=== PATIENT | female | born 1950 | race African-American/Black ===

== ENCOUNTER 2021-11-07 23:19 | Emergency (ER) | payer OTHER ==
[~2021-11-07] VITALS: Ht 175.3 cm; Wt 88.9 kg
--- NOTE | ~2021-11-07 | EMS ---
[address] [address] EMS Patient Care Report Name: ARIEL TOBIAS Room #: DEP ARMEN Moreland#: [id number] Admission: 11/07/21 Attend Phys: Discharge: 11/08/21 Date of : 52 Report #: [id number] THIS REPORT FOR: //name// Report Transmitted: 11/10/2021 11:06 EMS Care Summary [place], [place]/[facility] Incident [id number] @ 11/07/2021 22:48 Incident Location [facility] [address] Patient ARIEL TOBIAS Female, 70 Years 1950 Patient Address [facility] [address] [place] [address] Patient History End Stage Renal Disease (ESRD),Anemia,Dialysis, Patient Allergies Penicillin allergy,Cephalexin,Doxycycline,Sulfa,Keflex,Ibuprofen, Patient Medications Hydroxyzine, Oxycodone, Citalopram, Aspirin, Cymbalta, Insulin, Metoprolol, Heparin, Lidocaine, Trazodone, Furosemide, Alprazolam, Prednisone, Benadryl, Chief Complaint FOREHEAD LAC Disposition Transported No Lights/[place] Dispatch Reason Falls Transported To [facility] Narrative UPON ARRIVAL PT SITTING UPRIGHT ON GROUND CONSCIOUS AND ALERT. PT HAD ROLLED OUT OF BED AND HIT FOREHEAD ON THE GROUND. BED IS ON THE FLOOR, FALL ABOUT [address] [address] EMS Patient Care Report Name: ARIEL TOBIAS Room #: DEP [facility].#: [id number] Admission: 11/07/21 Attend Phys: Discharge: 11/08/21 Date of : 52 Report #: [id number] FOOT. P HAD NO LOC AND ONLY COMPLAINS OF PAIN TO THE FOREHEAD. HEAD HAS BEEN WRAPPED ALREADY ON OUR ARRIVAL. PT NORMALLY ON 4 LPM O2 AND SWITCHED TO PORTABLE O2 FOR TRANSPORT. PT ASSISTED TO FEET TO PIVOT TO COT. PT TRANSPORTED. Initial Vitals @23:10P: 130,R: 20,BP: 106/61,GCS: 15,SpO2: 98,Revised Trauma: 12, @23:05P: 137,R: 20,BP: 101/66,Pain: 5/10,GCS: 15,SpO2: 96,Revised Trauma: 12, Assessments @23:00MENTAL:Person Oriented,Place Oriented,Time Oriented,Event Oriented,SKIN:HEENT:Head/Face: No Abnormalities,LUNG SOUNDS:General: No Abnormalities,ABDOMEN:General: No Abnormalities,PELVIS//GI:EXTREMITIES:Left Arm: No Abnormalities,Right Arm: No Abnormalities,Left Leg: No Abnormalities,Right Leg: No Abnormalities,PULSE:Radial: 2+ Normal,NEURO:No Abnormalities, Impression Injury of Head Procedures @23:00 ALS Assessment Response: UnchangedSucceeded @23:02 C-Spine Clearance Response: Unchanged Timeline 22:45,Call Received 22:45,Dispatch Notified 22:48,Dispatched 22:49,En Route 22:57,On Scene 22:59,At Patient 23:00,ALS Assessment,Response: UnchangedSucceeded, 23:02,C-Spine Clearance,Response: Unchanged 23:05,BP: 101/66 M,PULSE: 137,RR: 20 R,SPO2: 96 Ox,ETCO2: ,BG: ,PAIN: 5,GCS: 15, 23:10,BP: 106/61 M,PULSE: 130,RR: 20 R,SPO2: 98 Ox,ETCO2: ,BG: ,PAIN: ,GCS: 15, 23:12,Depart Scene 23:15,At Destination 23:34,Call Closed Disclaimer v1.1 Copyright 2021 [employer] This EMS Care Summary contains data elements from the applicable legal record (which may be displayed differently). It is designed to provide pertinent information for the following purposes: continuity of care, clinical quality, and state data reporting. The complete legal record is available to ED staff [address] [address] EMS Patient Care Report Name: ARIEL TOBIAS Room #: DEP Aniceto#: [id number] Admission: 11/07/21 Attend Phys: Discharge: 11/08/21 Date of : 52 Report #: [id number] and administrators of the receiving hospital in ES's Patient Tracker. All data is provided "as is."
--- NOTE | ~2021-11-07 | EMS ---
[facility] [address] [place] [address] EMS Patient Care Report Name: ARIEL TOIBAS Room #: REG ARMEN Moreland#: [id number] Admission: 11/07/21 Attend Phys: Discharge: Date of : 52 Report #: [id number] THIS REPORT FOR: //name// Report Transmitted: 11/07/2021 22:38 EMS Care Summary [place], [place]/[facility] Incident [id number] @ 11/07/2021 22:48 Incident Location [address] Patient ARIEL TOBIAS Female, 70 Years 1950 Patient Address [address] [place] [address] Patient History End Stage Renal Disease (ESRD),Anemia,Dialysis, Patient Allergies Penicillin allergy,Cephalexin,Doxycycline,Sulfa,Keflex,Ibuprofen, Patient Medications Hydroxyzine, Oxycodone, Citalopram, Aspirin, Cymbalta, Insulin, Metoprolol, Heparin, Lidocaine, Trazodone, Furosemide, Alprazolam, Prednisone, Benadryl, Chief Complaint FOREHEAD LAC Disposition Transported No Lights/[place] Dispatch Reason Falls Transported To [facility] Narrative UPON ARRIVAL PT SITTING UPRIGHT ON GROUND CONSCIOUS AND ALERT. PT HAD ROLLED OUT OF BED AND HIT FOREHEAD ON THE GROUND. BED IS ON THE FLOOR, FALL ABOUT 1 [facility] [address] [place] [address] EMS Patient Care Report Name: ARIEL TBOIAS Room #: REG ER [facility].#: [id number] Admission: 11/07/21 Attend Phys: Discharge: Date of : 52 Report #: [id number] FOOT. P HAD NO LOC AND ONLY COMPLAINS OF PAIN TO THE FOREHEAD. HEAD HAS BEEN WRAPPED ALREADY ON OUR ARRIVAL. PT NORMALLY ON 4 LPM O2 AND SWITCHED TO PORTABLE O2 FOR TRANSPORT. PT ASSISTED TO FEET TO PIVOT TO COT. PT TRANSPORTED. Initial Vitals @23:10P: 130,R: 20,BP: 106/61,GCS: 15,SpO2: 98,Revised Trauma: 12, @23:05P: 137,R: 20,BP: 101/66,Pain: 5/10,GCS: 15,SpO2: 96,Revised Trauma: 12, Assessments @23:00MENTAL:Person Oriented,Place Oriented,Time Oriented,Event Oriented,SKIN:HEENT:Head/Face: No Abnormalities,LUNG SOUNDS:General: No Abnormalities,ABDOMEN:General: No Abnormalities,PELVIS//GI:EXTREMITIES:Left Arm: No Abnormalities,Right Arm: No Abnormalities,Left Leg: No Abnormalities,Right Leg: No Abnormalities,PULSE:Radial: 2+ Normal,NEURO:No Abnormalities, Impression Injury of Head Procedures @23:00 ALS Assessment Response: UnchangedSucceeded @23:02 C-Spine Clearance Response: Unchanged Timeline 22:45,Call Received 22:45,Dispatch Notified 22:48,Dispatched 22:49,En Route 22:57,On Scene 22:59,At Patient 23:00,ALS Assessment,Response: UnchangedSucceeded, 23:02,C-Spine Clearance,Response: Unchanged 23:05,BP: 101/66 M,PULSE: 137,RR: 20 R,SPO2: 96 Ox,ETCO2: ,BG: ,PAIN: 5,GCS: 15, 23:10,BP: 106/61 M,PULSE: 130,RR: 20 R,SPO2: 98 Ox,ETCO2: ,BG: ,PAIN: ,GCS: 15, 23:12,Depart Scene 23:15,At Destination 23:34,Call Closed Disclaimer v1.1 Copyright 2020 [employer] This EMS Care Summary contains data elements from the applicable legal record (which may be displayed differently). It is designed to provide pertinent information for the following purposes: continuity of care, clinical quality, and state data reporting. The complete legal record is available [place] [address] EMS Patient Care Report Name: ARIEL TOBIAS Room #: CARLIN Moreland#: [id number] Admission: 11/07/21 Attend Phys: Discharge: Date of : 52 Report #: [id number] and administrators of the receiving hospital in [employer]'s Patient Tracker. All data is provided "as is."
[2021-11-08 00:57] VITALS: BP 110/62
[2021-11-08] MEDS ORDERED: ALPRAZOLAM 0.0.25 M1 PO (04:16)
[2021-11-08] MEDS ORDERED: BACITRACIN1 EACH TOP (04:17)
[2021-11-08] MEDS ORDERED: ASA81BEC PO (04:17)
[2021-11-08] MEDS ORDERED: VITAMIN C500 M2 PO (04:17)
[2021-11-08] MEDS ORDERED: CELEXA 20 MG TA20 MG PO (04:18)
[2021-11-08] MEDS ORDERED: FAMOTIDINE 20 M20 MG PO (04:18)
[2021-11-08] MEDS ORDERED: CYMBALTA60 MG PO (04:18)
[2021-11-08] MEDS ORDERED: BENADRYL25 MG PO (04:18)
[2021-11-08] MEDS ORDERED: FUROSEMIDE 80 M80 M1 PO (04:19)
[2021-11-08] MEDS ORDERED: GLUCAGEN1 M2 IM (04:20)
[2021-11-08] MEDS ORDERED: MUCINEX600 MG PO (04:20)
[2021-11-08] MEDS ORDERED: HEPARIN SO5000 UNIT6 SUBQ (04:21)
[2021-11-08] MEDS ORDERED: HYDROXYZINE HCL25 M2 PO (04:22)
[2021-11-08] MEDS ORDERED: NOVOLOG100 UNIT/2 SUBQ (04:23)
[2021-11-08] MEDS ORDERED: IPRAT-ALBUT 0.5-3 ML INH ×2 (04:24)
[2021-11-08] MEDS ORDERED: MELATONIN3 M1 PO (04:25)
[2021-11-08] MEDS ORDERED: LIDOCAINE PAIN1 EACH TOP (04:25)
[2021-11-08] MEDS ORDERED: MIRALAX119 GM PO (04:26)
[2021-11-08] MEDS ORDERED: TOPROL XL50 MG PO (04:26)
[2021-11-08] MEDS ORDERED: ARTIFICIAL TEA1 EACH OPHTHALMIC (04:26)
[2021-11-08] MEDS ORDERED: NYSTATIN15 G3 TOP (04:27)
[2021-11-08] MEDS ORDERED: ZINC-22050 MG PO (04:27)
[2021-11-08] MEDS ORDERED: OXYCODONE HCL5 MG PO ×2 (04:28)
[2021-11-08] MEDS ORDERED: ONDANSETRON HCL4 M2 PO (04:28)
[2021-11-08] MEDS ORDERED: PREDNISONE 10 M10 MG PO (04:29)
[2021-11-08] MEDS ORDERED: TRAZODONE HCL50 MG PO (04:30)
[2021-11-08] MEDS ORDERED: RENVELA800 MG PO (04:30)
[2021-11-08] MEDS ORDERED: RENAL-VITE TAB0.8 MG PO (04:30)
[2021-11-08] MEDS ORDERED: VOLTAREN ARTHRI20 GM TOP (04:31)
[2021-11-08] MEDS ORDERED: TYLENOL EXTRA500 MG PO (04:31)
== END 2021-11-08 01:36 | disposition home or self-care (01) ==
LOC: ER 23:19
DX: S01.81XA Laceration without foreign body of other part of head, initial encounter (principal); Z88.6 Allergy status to analgesic agent; Z88.1 Allergy status to other antibiotic agents; Z88.0 Allergy status to penicillin; Z88.2 Allergy status to sulfonamides; Z88.8 Allergy status to other drugs, medicaments and biological substances; W06.XXXA Fall from bed, initial encounter; Y93.89 Activity, other specified; Y92.89 Other specified places as the place of occurrence of the external cause; Y99.8 Other external cause status

== ENCOUNTER 2021-12-03 18:51 | Inpatient (IN) | payer OTHER ==
[~2021-12-03] VITALS: Ht 152.4 cm; Wt 81.0 kg
--- NOTE | ~2021-12-03 | EMS ---
[address] [address] EMS Patient Care Report Name: ARIEL TOBIAS Room #: REG ARMEN Moreland#: [id number] Admission: 12/03/21 Attend Phys: Discharge: Date of : 52 Report #: [id number] THIS REPORT FOR: //name// Report Transmitted: 12/03/2021 18:42 EMS Care Summary [place], [place]/[facility] Incident [id number] @ 12/03/2021 18:23 Incident Location [address] Patient ARIEL TOBIAS Female, 71 Years 1950 Patient Address [address] [place] [address] Patient History Congestive Heart Failure (CHF),End Stage Renal Disease (ESRD),Anemia,Dialysis, Patient Allergies Penicillin allergy,Cephalexin,Doxycycline,Sulfa,Keflex,Ibuprofen, Patient Medications Alprazolam, Cymbalta, Insulin, Metoprolol, Hydroxyzine, Prednisone, Heparin, Lidocaine, Benadryl, Furosemide, Trazodone, Oxycodone, Aspirin, Citalopram, Chief Complaint AMS Disposition Transported Lights/[place] Dispatch Reason Breathing Problem Transported To [facility] Narrative RESPONDED TO BREATHING PROBLEMS AT GROUP HOME. UPON ARRIVAL PT FOUND SITTING UPRIGHT LAYING IN BED. PT IS AWAKE BUT NOT TRACKING. PT DOES NOT ANSWER [address] [address] EMS Patient Care Report Name: ARIEL TOBIAS Room #: REG [facility].#: [id number] Admission: 12/03/21 Attend Phys: Discharge: Date of : 52 Report #: [id number] QUESTIONS OR FOLLOW SIMPLE COMMANDS BUT YELLS OUT TO PAIN. [place] STAFF REPORT PT USUALLY GCS OF 15. PT BASELINE IS ON OXYGEN AND BUMPED UP FROM 2LPM TO 4LPM BY STAFF SCOREKEEPER OF EMS. PT VITALS OBTAINED. PT NOTED TO BE TACHYCARDIC AND HYPOTENSIVE. 12 LEAD APPEARS SINUS TACH WITH NO ELEVATION/DERESSION. IV FLUIDS WERE STARTED AND PT WAS TEAM LIFTED TO COT WITH SEATBELTS APPLIED. PT TRANSPORTED TO [facility]. PT WAS TEAM LIFTED TO BED AND HANDRAILS UP. REPORT GIVEN TO NURSE. Initial Vitals @18:44P: 155,R: 36, @18:45P: 187,R: 31,CO: 2,SpO2: 94, @18:36P: 152,R: 35,WI Suspected: false @18:33P: 147,R: 33, @18:35P: 160,R: 34,CO: 0,SpO2: 97, @18:36P: 154,R: 35, @18:42P: 149,R: 32, @18:48P: 155,R: 35, @18:47P: 158,R: 36,BP: 88/60,SpO2: 96, @18:47P: 155,R: 32,SpO2: 96, @18:32P: 149,CO: 5,SpO2: 98, @18:33P: 149,R: 26,BP: 85/57,GCS: 11,Glucose: 206,SpO2: 95,Revised Trauma: 10, Assessments @18:32MENTAL:Confused,SKIN:HEENT:Neck/Airway: No Abnormalities,LUNG SOUNDS:ABDOMEN:PELVIS//GI:Incontinence,EXTREMITIES:Left Arm: Weakness,Left Leg: Weakness,Right Leg: Weakness,Right Arm: Weakness,PULSE:NEURO:Other,@18:42MENTAL:Confused,SKIN:HEENT:LUNG SOUNDS:ABDOMEN:PELVIS//GI:EXTREMITIES:Left Arm: Weakness,Left Leg: Weakness,Right Leg: Weakness,Right Arm: Weakness,PULSE:NEURO:Other, Impression Altered Mental Status Procedures @18:32 ALS Assessment Response: UnchangedSucceeded @18:36 IV Therapy - Saline Lock 5cc (18 ga) Site: Antecubital-Left Response: UnchangedSucceeded @18:33 3-Lead ECG Response: UnchangedSucceeded @18:34 Oxygen FlowRate: 4 Device: Nasal Cannula (NC) Response: UnchangedSucceeded @18:36 12-Lead ECG Response: UnchangedSucceeded @18:40 IV Bolus - Normal Saline (.9% NaCl) 30cc (18 ga) Site: Antecubital-Left Response: UnchangedSucceeded Timeline [facility] [address] [place] [address] EMS Patient Care Report Name: ARIEL TOBIAS Room #: REG ARMEN Moreland#: [id number] Admission: 12/03/21 Attend Phys: Discharge: Date of : 52 Report #: [id number] 18:21,Call Received 18:21,Dispatch Notified 18:23,Dispatched 18:24,En Route 18:30,On Scene 18:32,At Patient 18:32,ALS Assessment,Response: UnchangedSucceeded, 18:32,BP: / M,PULSE: 149,RR: R,SPO2: 98 Ox,ETCO2: ,BG: ,PAIN: ,GCS: , 18:33,3-Lead ECG,Response: UnchangedSucceeded, 18:33,BP: 85/57 M,PULSE: 149,RR: 26 R,SPO2: 95 Ox,ETCO2: ,B,PAIN: ,GCS: 11, 18:33,BP: / M,PULSE: 147,RR: 33 R,SPO2: Ox,ETCO2: ,BG: ,PAIN: ,GCS: , 18:34,Oxygen FlowRate: 4 Device: Nasal Cannula (NC) Response: UnchangedSucceeded, 18:35,BP: / M,PULSE: 160,RR: 34 R,SPO2: 97 Ox,ETCO2: ,BG: ,PAIN: ,GCS: , 18:36,12-Lead ECG,Response: UnchangedSucceeded, 18:36,BP: / M,PULSE: 152,RR: 35 R,SPO2: Ox,ETCO2: ,BG: ,PAIN: ,GCS: , 18:36,IV Therapy - Saline Lock 5cc 18 ga Site: Antecubital-Left,Response: UnchangedSucceeded, 18:36,BP: / M,PULSE: 154,RR: 35 R,SPO2: Ox,ETCO2: ,BG: ,PAIN: ,GCS: , 18:40,IV Bolus - Normal Saline (.9% NaCl) 30cc 18 ga Site: Antecubital-Left,Response: UnchangedSucceeded, 18:42,BP: / M,PULSE: 149,RR: 32 R,SPO2: Ox,ETCO2: ,BG: ,PAIN: ,GCS: , 18:43,Depart Scene 18:44,BP: / M,PULSE: 155,RR: 36 R,SPO2: Ox,ETCO2: ,BG: ,PAIN: ,GCS: , 18:44,At Destination 18:45,BP: / M,PULSE: 187,RR: 31 R,SPO2: 94 Ox,ETCO2: ,BG: ,PAIN: ,GCS: , 18:47,BP: / M,PULSE: 155,RR: 32 R,SPO2: 96 Ox,ETCO2: ,BG: ,PAIN: ,GCS: , 18:47,BP: 88/60 M,PULSE: 158,RR: 36 R,SPO2: 96 Ox,ETCO2: ,BG: ,PAIN: ,GCS: , 18:48,BP: / M,PULSE: 155,RR: 35 R,SPO2: Ox,ETCO2: ,BG: ,PAIN: ,GCS: , 19:04,Call Closed Disclaimer v1.1 Copyright 2021 [employer] This EMS Care Summary contains data elements from the applicable legal record (which may be displayed differently). It is designed to provide pertinent information for the following purposes: continuity of care, clinical quality, and state data reporting. The complete legal record is available to ED staff and administrators of the receiving hospital in [employer]'s Patient Tracker. All data is provided "as is."
[~2021-12-03 18:51] MED LIST: ALPRAZOLAM 0.0.25 M1 PO; ARTIFICIAL TEA1 EACH OPHTHALMIC; ASA81BEC PO; BACITRACIN1 EACH TOP; BENADRYL25 MG PO; CELEXA 20 MG TA20 MG PO; CYMBALTA60 MG PO; FAMOTIDINE 20 M20 MG PO; FUROSEMIDE 80 M80 M1 PO; GLUCAGEN1 M2 IM; HEPARIN SO5000 UNIT6 SUBQ; HYDROXYZINE HCL25 M2 PO; IPRAT-ALBUT 0.5-3 ML INH; LIDOCAINE PAIN1 EACH TOP; MELATONIN3 M1 PO; MIRALAX119 GM PO; MUCINEX600 MG PO; NOVOLOG100 UNIT/2 SUBQ; NYSTATIN15 G3 TOP; ONDANSETRON HCL4 M2 PO; OXYCODONE HCL5 MG PO; PREDNISONE 10 M10 MG PO; RENAL-VITE TAB0.8 MG PO; RENVELA800 MG PO; TOPROL XL50 MG PO; TRAZODONE HCL50 MG PO; TYLENOL EXTRA500 MG PO; VITAMIN C500 M2 PO; VOLTAREN ARTHRI20 GM TOP; ZINC-22050 MG PO
[2021-12-03 18:56] VITALS: BP 80/48
[2021-12-03 19:39] LABS: HEMATOCRIT 25.4 % (37.0-47.0); HEMOGLOBIN 8.2 gm/dL (12.0-15.0); MCH 28.7 pg (26.0-34.0); MCHC 32.4 g/dL (28.0-37.0); MCV 88.6 fL (80.0-100.0); RBC 2.86 mil/uL (4.20-5.00); RDW 17.8 % (10.5-14.5); WBC 23.1 thou/uL (4.0-11.0)
[2021-12-03 19:55] LABS: ANION GAP 13 mmol/L (7-16); BUN 46 mg/dL (7-18); CALCIUM 7.4 mg/dL (8.5-10.1); CHLORIDE 98 mmol/L (98-107); CO2 20 mmol/L (21-32); CREATININE 4.7 mg/dL (0.6-1.0); GLUCOSE 121 mg/dL (74-106); SODIUM 131 mmol/L (136-145)
[2021-12-03 20:05] LABS: ALBUMIN 1.5 g/dL (3.4-5.0); MAGNESIUM 1.6 mg/dL (1.8-2.4); PHOSPHORUS 4.5 mg/dL (2.6-4.7); SALICYLATE < 2.8 mg/dL (2.8-20.0); SGOT 57 U/L (15-37); SGPT 17 U/L (14-59); TOTAL BILIRUBIN 0.5 mg/dL (0.2-1.0); TOTAL PROTEIN 5.8 g/dL (6.4-8.2)
[2021-12-03 20:09] LABS: POTASSIUM 5.1 mmol/L (3.5-5.1)
[2021-12-03 21:49] LABS: URINE CLARITY CLOUDY; URINE COLOR YELLOW
[2021-12-03 21:50] LABS: URINE GLUCOSE-RANDOM* NEGATIVE (Negative); URINE PROTEIN (DIPSTICK) 3+ (Negative); URINE SPECIFIC GRAVITY 1.015 (1.005-1.035)
[2021-12-03 21:51] LABS: URINE BILIRUBIN NEGATIVE (Negative); URINE BLOOD 3+ (Negative); URINE KETONES 2+ (Negative); URINE LEUKOCYTES-REFLEX 3+ (Negative); URINE NITRITE-REFLEX NEGATIVE (Negative); URINE UROBILINOGEN 0.2 E.U./dl (0.2-1.0)
[2021-12-03 21:53] LABS: AMP/METHAMP Negative (Negative); BARBITURATES Negative (Negative); BENZODIAZEPINES Negative (Negative); COCAINE Negative (Negative); METHADONE Negative (Negative); OPIATES POSITIVE (Negative); PCP Negative (Negative)
[2021-12-03 21:56] LABS: SQUAMOUS 4-10 Moderate /LPF (0-3)
[2021-12-03 21:57] LABS: BACTERIA-REFLEX >30 Many /HPF (None Seen); CASTS None Seen /LPF (None Seen); CRYSTALS None Seen /LPF (None Seen); MUCUS 0-3 Light strn/LPF (None Seen); URINE RBC >20 Many /HPF (NONE SEEN); URINE WBC-REFLEX >25 Many /HPF (0-5); WBC CLUMPS Packed (None Seen)
[2021-12-04 05:48] LABS: HEMATOCRIT 23.3 % (37.0-47.0); HEMOGLOBIN 7.4 gm/dL (12.0-15.0); MCH 28.1 pg (26.0-34.0); MCHC 31.6 g/dL (28.0-37.0); MCV 88.9 fL (80.0-100.0); RBC 2.62 mil/uL (4.20-5.00); RDW 17.8 % (10.5-14.5); WBC 24.7 thou/uL (4.0-11.0)
[2021-12-04 06:29] LABS: POTASSIUM 4.3 mmol/L (3.5-5.1)
[2021-12-04 06:40] LABS: CREATININE 2.7 mg/dL (0.6-1.0)
--- NOTE | 2021-12-04 08:11 | EKG ---
[address] [address] ELECTROCARDIOGRAM REPORT Name: ARIEL TOBIAS Room #: 170-1 ADM IN M.R.#: [id number] Admission: 12/03/21 Attend Phys: Franco Cutler MD Discharge: Date of : 51 Report #: [id number] [facility] ED Test Date: 2021-12-03 Test Time: 18:59:57 Pat Name: ARIEL TOBIAS Department: Room: 170 Gender: F Aquatic Performer: ed : 1950 Requested By: Romario Jaimes Order Number: [id number] MD: Danny Russ Measurements Intervals [place] Rate: 152 P: 57 TN: 129 QRS: 49 QRSD: 71 T: 87 QT: 294 QTc: 468 Interpretive Statements Sinus tachycardia Baseline wander in lead(s) V1 No previous ECG available for comparison Electronically Signed On 12-04-2021 8:11:45 BREAD PACKER by Danny Russ [email or web address] <ELECTRONICALLY SIGNED> By: Danny Russ MD, [facility] 12/04/21 0811 1859 1859 Danny Russ MD, FACC /EPI
[2021-12-04 23:17] VITALS: BP 132/69
[2021-12-05 02:06] LABS: HEP B SURFACE Ab(ANTI-HBS Reactive (()); HEPATITIS B SURFACE AG Negative (Negative)
[2021-12-05 02:57] LABS: HEMATOCRIT 22.4 % (37.0-47.0); HEMOGLOBIN 7.2 gm/dL (12.0-15.0); MCH 28.2 pg (26.0-34.0); RBC 2.55 mil/uL (4.20-5.00); RDW 17.9 % (10.5-14.5); WBC 19.8 thou/uL (4.0-11.0)
[2021-12-05 04:31] LABS: CALCIUM 8.4 mg/dL (8.5-10.1)
[2021-12-05 04:41] VITALS: BP 101/50
[2021-12-05 05:02] LABS: CREATININE 3.7 mg/dL (0.6-1.0)
[2021-12-05 06:07] LABS: GLYCOHEMOGLOBIN (HGB A1C) 4.7 % (4.8-5.6)
[2021-12-05 08:31] VITALS: BP 114/53
--- NOTE | 2021-12-05 08:41 | HC ---
[facility] [place] [address] CONSULTATION Name: ARIEL TOBIAS Room #: 208-P ADM IN M.R.#: [id number] Admission: 12/03/21 Attend Phys: Franco Cutler MD Discharge: Date of : 52 Report #: [id number] THIS REPORT FOR: cc: Humble Gilbert MD, Christopher B. MD Barry, Joseph W. MD ~ DATE OF SERVICE: 12/04/2021 INFECTIOUS DISEASE CONSULTATION ATTENDING PHYSICIAN: Dr. Cutler. REASON FOR EVALUATION: Gram-positive cocci septicemia, also complicated urinary tract infection. HISTORY OF PRESENT ILLNESS: Chart reviewed. The patient examined. This is a 71-year-old woman with extensive medical history, has diabetes mellitus, has been complicated by end-stage renal disease on dialysis, vasculopathy, who is in a facility, who was noted to be more encephalopathic with progressive weakness, otherwise hemodynamically somewhat more labile with a marked tachycardia and hypotension. This prompted referral to the Emergency Room. Initial studies showed a white count elevated at 23.1, lactic acid of 2.9, and ProBNP of 12,061. Chest x-ray showed patchy bilateral interstitial infiltrates. Coronavirus testing was negative. Procalcitonin elevated at 6.86. Blood cultures collected on admission now 2/2 with gram-positive cocci in clusters, awaiting ID. Urinalysis, no voids, very little and greater than 25 white cells, greater than 30 bacteria. She is somewhat less encephalopathic now per nurse. She is more responsive. When asked, she complains of mid upper back pain. She is requiring supplemental oxygen at 4 liters per nasal cannula. She is empirically started on therapy with vancomycin and cefepime. ALLERGIES: PENICILLINS, SULFA, CEPHALOSPORINS, TETRACYCLINE, AND IBUPROFEN. CURRENT MEDICATIONS: Include vancomycin, cefepime, subcutaneous heparin, insulin, pantoprazole, p.r.n. ondansetron, acetaminophen. 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 She has known coronary artery disease with previous cardiac arrest, anxiety, depression, anemia, PTSD, reflux. SOCIAL HISTORY: She is disabled. FAMILY HISTORY: Noncontributory. REVIEW OF SYSTEMS: Otherwise, limited. [address] [address] CONSULTATION Name: AREIL TOBIAS Room #: 208-[facility].#: [id number] Admission: 12/03/21 Attend Phys: Franco Cutler MD Discharge: Date of : 52 Report #: [id number] PHYSICAL EXAMINATION: GENERAL: She is generally pleasant. She is clearly confused, moderate to marked distress, chronically ill-appearing and undernourished. VITAL SIGNS: Temperature 100.8 earlier, pulses in the 130s, respirations 17, blood pressure 100s to one teens. HEENT: Normocephalic. Extraocular muscles intact. Nasal cannula in place. NECK: Supple. LUNGS: Overall diminished breath sounds. There is scattered coarse breath sounds at the bases. HEART: Tachycardic, appears fairly regular. I do not appreciate a murmur. ABDOMEN: Soft, no apparent peritoneal signs. GENITOURINARY AND RECTAL: Deferred. LABORATORY DATA: Most recent electrolytes, sodium 133, potassium 4.3, chloride 96, bicarbonate is 24, anion gap of 13, BUN and creatinine 23 and 2.7, glucose of 144. CBC: White count of 24.7, H and H 7.4 and 23.3, platelets of 175. Blood cultures described above, gram-positive cocci in clusters. Coronavirus-19 testing ID now is negative. PCR is pending. Drug screen was positive for opioids. Urine culture in progress. Urinalysis showed greater than 25 white cells, greater than 30 bacteria. ASSESSMENT AND PLAN: Septic shock. The patient is in a facility. She does have severe underlying issues, appears to be Staphylococcus, presumably at risk given her dialysis situation. Also appears to have a complicated urinary tract infection as well, perhaps a pneumonitis, likely the latter is multifactorial. We will continue empiric therapy. I think cefepime and vancomycin are reasonable choice and should cover both gram-positive and gram-negative. We will await cultures and further ID. She remains quite tenuous at this point, although she is not overtly toxic. Continue to monitor expectantly, certainly at risk for clinical deterioration and nosocomial related complications. <ELECTRONICALLY SIGNED> By: Esteban Gleason MD 12/05/21 0841 1341 2210 Esteban Gleason MD /nt
--- NOTE | 2021-12-05 09:57 | EKG ---
[address] [address] ELECTROCARDIOGRAM REPORT Name: ARIEL TOBIAS Room #: 208-P ADM IN M.R.#: [id number] Admission: 12/03/21 Attend Phys: Franco Cutler MD Discharge: Date of : 52 Report #: [id number] [facility] ED Test Date: 2021-12-04 Test Time: 14:37:26 Pat Name: ARIEL TOBIAS Department: Room: 208 Gender: F Book Sewing Machine Operator: Celine ARGUETA : 1950 Requested By: Franco Cutler Order Number: [id number] MD: Obi Ferguson Measurements Intervals [place] Rate: 165 P: 0 ID: QRS: 48 QRSD: 81 T: -54 QT: 309 QTc: 512 Interpretive Statements Supraventricular tachycardia Low voltage, precordial leads Probable anteroseptal infarct, old Borderline T abnormalities, inferior leads Compared to ECG 12/03/2021 18:59:57 Low QRS voltage now present Myocardial infarct finding now present T-wave abnormality now present Sinus tachycardia no longer present Electronically Signed On 12-05-2021 9:57:27 TRADE PROMOTION ANALYST by Obi Ferguson [email or web address] <ELECTRONICALLY SIGNED> By: Obi Ferguson MD, FACC 12/05/21 0957 1437 1437 Obi Ferguson MD, [facility] /EPI
[2021-12-05 11:16] VITALS: BP 108/50
[2021-12-05 16:13] VITALS: BP 116/54
[2021-12-05 20:00] VITALS: BP 119/46
[2021-12-06] VITALS (12 sets, daily range): BP systolic 95–143; BP diastolic 50–114
[2021-12-06 02:30] LABS: HEMATOCRIT 21.6 % (37.0-47.0); MCHC 31.7 g/dL (28.0-37.0)
[2021-12-06 02:33] LABS: HEMOGLOBIN 6.9 gm/dL (12.0-15.0); MCH 27.9 pg (26.0-34.0); MCV 88.1 fL (80.0-100.0); RBC 2.45 mil/uL (4.20-5.00); RDW 18.2 % (10.5-14.5); WBC 18.3 thou/uL (4.0-11.0)
[2021-12-06 02:36] LABS: CALCIUM 8.8 mg/dL (8.5-10.1); POTASSIUM 3.4 mmol/L (3.5-5.1)
--- NOTE | 2021-12-06 12:46 | 2DMMODE ---
[facility] [place] [address] 2 D/M-MODE ECHOCARDIOGRAM Name: ARIEL TOBIAS Room #: 208-P ADM IN .R.#: [id number] Admission: 12/03/21 Attend Phys: Franco Cutler MD Discharge: Date of : 52 Report #: [id number] THIS REPORT FOR: cc: Humble Gilbert MD, Christopher B. MD Park, Jin S. MD ~ APPROVED REPORT Study performed: 12/06/2021 10:43:35 EXAM: Comprehensive 2D, Doppler, and color-flow Echocardiogram Patient Location: In-Patient Room #: 208 Status: on-call BSA: 1.78 HR: 100 bpm BP: 118/56 mmHg Rhythm: Atrial Fibrillation Other Information Study Quality: Adequate Technically limited study due to uncooperative patient, inability to position patient. 2D Dimensions IVSd: 11.57 (7-11mm) LVOT Diam: 19.23 (18-24mm) LVDd: 41.37 mm PWd: 9.21 (7-11mm) Ascending Ao: 21.07 (22-36mm) LVDs: 25.97 (25-40mm) Left Atrium: 32.33 (27-40mm) Aortic Root: 28.59 mm Volumes Left Atrial Volume (Systole) Single Plane 4CH: 29.65 mL Aortic Valve AoV Peak Ata.: 1.62 m/s AO Peak Gr.: 10.56 mmHg Pulmonary Valve PV Peak Ata.: 1.00 m/s PV Peak Gr.: 3.96 mmHg Tricuspid Valve [facility] [address] [email or web address] [address] 2 D/M-MODE ECHOCARDIOGRAM Name: ARIEL TOBIAS Room #: 208-P ADM IN .R.#: [id number] Admission: 12/03/21 Attend Phys: Franco Cutler MD Discharge: Date of : 52 Report #: [id number] TR Peak Ata.: 3.07 m/s RAP Estimate: 7.00 mmHg TR Peak Gr.: 37.67 mmHg RVSP: 44.00 mmHg Left Ventricle The left ventricle is normal size. There is normal LV segmental wall motion. There is normal left ventricular wall thickness. Left ventricular systolic function is normal. The left ventricular ejection fraction is within the normal range. LVEF is 60-65%. This study is not technically sufficient to allow evaluation of the LV diastolic function due to atrial fibrillation. Right Ventricle The right ventricle is normal size. The right ventricular systolic function is normal. Atria The left atrium size is normal. The right atrium size is normal. Aortic Valve Aortic valve is trileaflet. No aortic regurgitation is present. There is no aortic valvular stenosis. Mitral Valve The mitral valve is normal in structure. There is no mitral valve regurgitation noted. No evidence of mitral valve stenosis. Tricuspid Valve The tricuspid valve is normal in structure. Mild tricuspid regurgitation. Pulmonic Valve Pulmonic valve is not well visualized. Trace pulmonic regurgitation. Great Vessels The aortic root is normal in size. IVC is normal in size and collapses >50% with inspiration. Pericardium There is no pericardial effusion. <Conclusion> The left ventricle is normal size. There is normal left ventricular wall thickness. Left ventricular systolic function is normal. [facility] [address] [place] [address] 2 D/M-MODE ECHOCARDIOGRAM Name: ARIEL TOBIAS Room #: 208-P [facility] ..#: [id number] Admission: 12/03/21 Attend Phys: Franco Cutler MD Discharge: Date of : 52 Report #: [id number] The right ventricle is normal size. The left atrium size is normal. Aortic valve is trileaflet. There is no mitral valve regurgitation noted. Mild tricuspid regurgitation. <ELECTRONICALLY SIGNED> By: Devon Beverly MD 12/06/21 1246 1246 45 Devon Beverly MD /INF
[2021-12-07] VITALS: BP 110/53
[2021-12-07 04:00] VITALS: BP 109/50
[2021-12-07 07:47] LABS: RBC 2.45 mil/uL (4.20-5.00)
[2021-12-07 07:49] LABS: HEMATOCRIT 21.6 % (37.0-47.0); HEMOGLOBIN 6.9 gm/dL (12.0-15.0); MCH 28.1 pg (26.0-34.0); MCHC 31.8 g/dL (28.0-37.0); MCV 88.3 fL (80.0-100.0); RDW 18.5 % (10.5-14.5); WBC 17.8 thou/uL (4.0-11.0)
[2021-12-07 08:01] LABS: CALCIUM 9.6 mg/dL (8.5-10.1); POTASSIUM 3.4 mmol/L (3.5-5.1)
[2021-12-07 08:10] VITALS: BP 105/47
--- NOTE | 2021-12-07 11:18 | EKG ---
[address] [place] [address] ELECTROCARDIOGRAM REPORT Name: ARIEL TOBIAS Room #: 208-P ADM IN M.R.#: [id number] Admission: 12/03/21 Attend Phys: Franco Cutler MD Discharge: Date of : 52 Report #: [id number] [facility] Test Date: 2021-12-06 Test Time: 13:03:29 Pat Name: ARIEL TOBIAS Department: Room: 208 P Gender: F Ergonomics Technician: MICHAEL : 1950 Requested By: Devon Beverly Order Number: [id number] MD: Devon Beverly Measurements Intervals [place] Rate: 172 P: -24 ID: 136 QRS: 50 QRSD: 79 T: -74 QT: 303 QTc: 513 Interpretive Statements Supraventricular tachycardia Low voltage, extremity leads Borderline T abnormalities, diffuse leads Compared to ECG 12/06/2021 01:28:50 T-wave abnormality now present Early repolarization no longer present Electronically Signed On 12-07-2021 11:18:39 INSOLE DOUBLER by Devon Beverly [email or web address] <ELECTRONICALLY SIGNED> By: Devon Beverly MD 12/07/21 1118 1303 02 MD CARL Grajeda
--- NOTE | 2021-12-07 11:21 | EKG ---
[address] [address] ELECTROCARDIOGRAM REPORT Name: ARIEL TOBIAS Room #: 208-P ADM IN M.R.#: [id number] Admission: 12/03/21 Attend Phys: Franco Cutler MD Discharge: Date of : 52 Report #: [id number] [facility] Test Date: 2021-12-06 Test Time: 01:28:50 Pat Name: ARIEL TOBIAS Department: Room: 208 P Gender: F Process Plant Operator: NAREN : 1950 Requested By: Franco Cutler Order Number: [id number] MD: Devon Beverly Measurements Intervals [place] Rate: 161 P: 0 IL: 79 QRS: 51 QRSD: 82 T: 0 QT: 310 QTc: 508 Interpretive Statements Supraventricular tachycardia Low voltage, extremity leads Repolarization abnormality, prob rate related Compared to ECG 12/04/2021 14:37:26 Early repolarization now present Myocardial infarct finding no longer present T-wave abnormality no longer present Electronically Signed On 12-07-2021 11:21:16 [employer]ARTH MOVING MACHINE OPERATOR by Devon Beverly [email or web address] <ELECTRONICALLY SIGNED> By: Devon Beverly MD 12/07/21 1121 0128 Devon Beverly MD /KARL
[2021-12-07 11:40] VITALS: BP 122/60
[2021-12-07 15:55] VITALS: BP 119/64
[2021-12-07 19:45] VITALS: BP 125/53
[2021-12-08 00:04] VITALS: BP 128/61
[2021-12-08 03:44] VITALS: BP 123/59
[2021-12-08 08:00] VITALS: BP 116/58
--- NOTE | 2021-12-08 08:08 | HC ---
[facility] [address] CONSULTATION Name: ARIEL TOBIAS Room #: 208-P ADM IN M.R.#: [id number] Admission: 12/03/21 Attend Phys: Franco Cutler MD Discharge: Date of : 52 Report #: [id number] THIS REPORT FOR: cc: Humble Gilbert MD, Christopher B. MD Park, Jin S. MD ~ DATE OF SERVICE: 12/06/2021 CARDIOLOGY CONSULT INDICATION: SVT. HISTORY OF PRESENT ILLNESS: This is a 71-year-old female who was transferred from a prison facility for altered mental status. Workup has revealed Staph aureus infection in the blood and Klebsiella in the urine. She has a history of end-stage renal disease and the catheter was removed. Last evening, she was noted to have tachycardia, heart rate of 150 beats per minute. Questionable SVT, treated with adenosine. 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 The monitor itself is inaccurate as it reports heart rates of 170-190 beats per minute. In reviewing the strips, the heart rate is actually in the 100-120 beats per minute range. She is lethargic and denies any chest pain or shortness of breath. PAST MEDICAL HISTORY: Resides in a prison facility, prior history of COVID infection, paroxysmal atrial fibrillation, aphasia, depression, anemia, PTSD, CVA, anoxic brain injury, diabetes and end-stage renal disease. ALLERGIES: Please see MAR for full listing. MEDICATIONS AT HOME: Included insulin, metoprolol 50 mg, zinc, ____, folic acid. SOCIAL HISTORY: Negative for tobacco use, resides in a prison facility. REVIEW OF SYSTEMS: Unobtainable. FAMILY HISTORY: Unobtainable. PHYSICAL EXAMINATION: VITAL SIGNS: Blood pressure is 118/60, heart rate is 120 beats per minute. GENERAL APPEARANCE: This is an elderly appearing female, lethargic. HEENT: Normocephalic, atraumatic. NECK: Supple. LUNGS: Coarse breath sounds. [facility] [address] [place] [address] CONSULTATION Name: MICHELINEARIEL Room #: 208-P [facility] IN M.R.#: [id number] Admission: 12/03/21 Attend Phys: Franco Cutler MD Discharge: Date of : 52 Report #: [id number] CARDIAC: Tachycardic. S1, S2 positive. ABDOMEN: Soft, nontender. EXTREMITIES: No cyanosis, no edema. ECG reveals sinus tachycardia. LABORATORY DATA: Hemoglobin initially 8.2, now 6.9. Creatinine is 3.0. ASSESSMENT AND PLAN: 1. 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 The sinus tachycardia is a physiologic response to underlying sepsis. In addition, the ip counsel is erroneously reading elevated heart rates, which I have personally reviewed. 2. Sepsis, continue antibiotics as per ID. 3. End-stage renal disease with recent staph infection, the dialysis catheter was removed. May need SHERLYN, await ID and Nephrology recommendations. 4. Mental status change due to above sepsis. <ELECTRONICALLY SIGNED> By: Devno Beverly MD 12/08/21 [id number] Devon Beverly MD /nt
[2021-12-08 12:10] VITALS: BP 118/58
[2021-12-08 16:20] VITALS: BP 109/55
[2021-12-08 19:41] VITALS: BP 112/49
[2021-12-09 00:29] VITALS: BP 112/46
[2021-12-09 03:59] VITALS: BP 126/50
[2021-12-09 07:42] LABS: HEMATOCRIT 23.1 % (37.0-47.0); HEMOGLOBIN 7.4 gm/dL (12.0-15.0); MCH 27.5 pg (26.0-34.0); MCHC 31.8 g/dL (28.0-37.0); MCV 86.2 fL (80.0-100.0); RBC 2.68 mil/uL (4.20-5.00); RDW 18.7 % (10.5-14.5); WBC 21.3 thou/uL (4.0-11.0)
[2021-12-09 08:00] VITALS: BP 93/49
[2021-12-09 11:40] VITALS: BP 189/165
[2021-12-09 15:55] VITALS: BP 86/57
[2021-12-09 20:40] VITALS: BP 104/46
[2021-12-10 04:45] VITALS: BP 105/45
[2021-12-10 08:37] VITALS: BP 101/46
[2021-12-10 20:25] VITALS: BP 125/41
[2021-12-11] MEDS ORDERED: Transderm-Scop 1MG/7 TRANSDERM (13:29)
[2021-12-11] MEDS ORDERED: LORAZEPAM I2 MG/1 M2 SUBLING (13:29)
[2021-12-11] MEDS ORDERED: MORPHINE S100 MG/51 SUBLING (13:29)
== END 2021-12-11 13:40 | disposition hospice, inpatient (51) | DRG 871 ==
LOC: ER 18:51 → EROBS 22:22 → 2N 22:22 → 4W 12-10 12:23
PROVIDERS: Emergency Medicine; Internal Medicine; Nurse Practitioner Family; ADMIT Hospitalist; ATTEND Hospitalist
DX: A41.02 Sepsis due to Methicillin resistant Staphylococcus aureus (principal); R65.21 Severe sepsis with septic shock; J96.21 Acute and chronic respiratory failure with hypoxia; E43 Unspecified severe protein-calorie malnutrition; N18.6 End stage renal disease; J18.9 Pneumonia, unspecified organism; G92.8 Other toxic encephalopathy; T80.218A Other infection due to central venous catheter, initial encounter; N39.0 Urinary tract infection, site not specified; G93.1 Anoxic brain damage, not elsewhere classified; I47.1 Supraventricular tachycardia; I12.0 Hypertensive chronic kidney disease with stage 5 chronic kidney disease or end stage renal disease; Z99.2 Dependence on renal dialysis; Z20.822 Contact with and (suspected) exposure to COVID-19; E11.22 Type 2 diabetes mellitus with diabetic chronic kidney disease; Z79.4 Long term (current) use of insulin; D63.1 Anemia in chronic kidney disease; Z68.34 Body mass index [BMI] 34.0-34.9, adult; Z88.0 Allergy status to penicillin; Z88.2 Allergy status to sulfonamides; Z88.8 Allergy status to other drugs, medicaments and biological substances; Z66 Do not resuscitate; E87.6 Hypokalemia; E83.42 Hypomagnesemia; G24.01 Drug induced subacute dyskinesia; B96.1 Klebsiella pneumoniae [K. pneumoniae] as the cause of diseases classified elsewhere; I48.91 Unspecified atrial fibrillation; Z79.01 Long term (current) use of anticoagulants; F41.9 Anxiety disorder, unspecified; F32.A Depression, unspecified; Z86.73 Personal history of transient ischemic attack (TIA), and cerebral infarction without residual deficits
CPT/HCPCS: 10047; 10081; 10797; 32100

== ENCOUNTER 2021-12-11 14:20 | Inpatient (IN) | payer OTHER ==
[~2021-12-11 14:20] MED LIST changes: +LORAZEPAM I2 MG/1 M2 SUBLING; +MORPHINE S100 MG/51 SUBLING; +Transderm-Scop 1MG/7 TRANSDERM
--- NOTE | 2021-12-11 15:28 | NUR ---
PT DISCHARGED FROM ACUTE CARE ON COMFORT MEASURES TODAY AND ADMITTED TO [facility]. WINNIE [facility] HOSPICE NURSE WAS AT BEDSIDE THIS AM. ROMULO LAGOS [facility] GRAINER MACHINE HAD MET WITH PT'S SON/MARS BOUDREAUX YESTERDAY AFTERNOON AND SIGNED CONSENTS. CM FOLLOWING.
[2021-12-11 19:40] VITALS: BP 110/41
[2021-12-12 07:47] VITALS: BP 82/42
--- NOTE | 2021-12-12 08:42 | NUR ---
ASSUMED PT CARE THIS AM. PT IS ON HOSPICE CARE. PT IS NONVERBAL AND DROWSY BUT STILL ABLE TO OPEN EYES THIS AM. PT IS ON 3L NC 02. PT HAS DUNCAN CATH IN PLACE. PT IS ON CONTACT ISOLATION FOR MRSA. PT HAS IV SITES ON L WRIST AND R UA SALINE LOCKED. WILL FREQUENTLY MONITOR PT. FOLLOW POC.
--- NOTE | 2021-12-12 13:33 | NUR ---
ASSUMED CARE FOR PATIENT AT THIS TIME. PATIENT RESTING WITH EYES CLOSED NO GRIMACING OR SYMPTOMS OF AIR HUNGER. PATIENTS FAMILY AT BEDSIDE AND IS OKAY WITH PLAN OF CARE. WILL CONTINUE TO MONITOR FOR NEW SIGNS OF PAIN OR AGGITATION.
[2021-12-12 19:52] VITALS: BP 83/45
--- NOTE | 2021-12-13 04:53 | NUR ---
PT RESTING WITH EYES CLOSED AT THIS TIME.OPENS EYES SPONATNEOUSLY TO VERBAL STIMULI.PT WITH AGONAL BREATHING AT TIMES THAT IS CONTROLLED WITH MEDS ORDERED.FAMILY AT BEDSIDE AT THE BEGINNING OF THE SHIFT.POC IS TO CONTINUE WITH COMFORT CARE ORDERED.
[2021-12-13 07:35] VITALS: BP 77/37
--- NOTE | 2021-12-13 16:59 | NUR ---
PT REMAINS NONVERBAL/NONRESPONSIVE. COMFORT CARE. PRN MEDS GIVEN FOR DYSPNEA THROUGHOUT THE SHIFT. FAMILY AT BEDSIDE MOST OF THE SHIFT. MINIMAL URINE OUTPUT. MEDS CONTROLLING DYSPNEA. PT BREATHING MORE SHALLOW THAN PRIOR IN THE SHIFT. WILL CONT TO MONITOR AND MAINTAIN COMFORT.
[2021-12-13 19:01] VITALS: BP 56/30
--- NOTE | 2021-12-13 23:30 | NUR ---
0: REPORT GOT FROM DAY NURSE AND BOTH DAY AND NIGHT NURSES CHECKED ON PT. INSPIRATIONS WERE ABOUT 5-10 SECONDS APART. NO RESPIRATORY DISTRESS NOTED. PT WAS NOT RESPONSIVE. PUSLES PRESENT. 1948 CHECKED ON PATIENT AND NOTED SHE WAS NOT BREATHING. RADIAL AND CAROTID PULSES FELT, NON NOTED. CHECK WAS DONE BY 2 NURSES AND TIME OF PRONOUNCED 1948. 2009: 2 FAMILY MEMBERS CAME IN AND STAYED WITH PATIENT FOR ABOUT 10 MINUTES AND ANSWERED SOME QUESTIONS BEFORE LEAVING. SON CALLED TO NO AVAIL. 2049 CALLED NIECE, ANGEL SINGH, AND NOTIFIED AND ALSO ASKED ABOUT HOME WHICH SHE WAS NOT ABLE TO PROVIDE. 2309: CLEANED PT UP AND PLACED IN BODY BAG WITH TAGS ON HER TOE AND THE BAG. PERSONAL ITEMS ( PYJAMAS AND 2 RINGS WERE PLACED IN PATIENT BAG AND PLACED ON PT'S BODY. THIS WAS DISCLOSED TO SECURITY WHEN CALLED TO COLLECT BODY. 2339, SECURITY TOOK BODY AND PERSONAL BELONGINGS AWAY.
== END 2021-12-13 19:49 | DRG 871 ==
LOC: 4W 14:20
PROVIDERS: ADMIT Internal Medicine; ATTEND Internal Medicine
DX: A41.02 Sepsis due to Methicillin resistant Staphylococcus aureus (principal); J18.9 Pneumonia, unspecified organism; G92.8 Other toxic encephalopathy; N18.6 End stage renal disease; E43 Unspecified severe protein-calorie malnutrition; J96.01 Acute respiratory failure with hypoxia; N39.0 Urinary tract infection, site not specified; G93.1 Anoxic brain damage, not elsewhere classified; I12.0 Hypertensive chronic kidney disease with stage 5 chronic kidney disease or end stage renal disease; I47.1 Supraventricular tachycardia; Z99.2 Dependence on renal dialysis; E11.9 Type 2 diabetes mellitus without complications; I69.320 Aphasia following cerebral infarction; Z88.0 Allergy status to penicillin; Z88.2 Allergy status to sulfonamides; Z66 Do not resuscitate; K21.9 Gastro-esophageal reflux disease without esophagitis; I48.91 Unspecified atrial fibrillation; Z79.01 Long term (current) use of anticoagulants; F41.9 Anxiety disorder, unspecified; F32.A Depression, unspecified; F43.10 Post-traumatic stress disorder, unspecified; E11.22 Type 2 diabetes mellitus with diabetic chronic kidney disease; G24.01 Drug induced subacute dyskinesia; D63.8 Anemia in other chronic diseases classified elsewhere; R53.81 Other malaise
CPT/HCPCS: 10047